=== PATIENT | male | born 1985 | race Caucasian/White ===

== ENCOUNTER 2018-06-10 03:22 | Emergency (ER) | payer BC ==
[2018-06-10] MEDS ORDERED: Sodium Chloride 0.9% 1,000 ML IV SCH (03:30)
[2018-06-10] MEDS ORDERED: Ketorolac 30 MG/ML SDV IVPUSH ONE (03:30)
[2018-06-10] MEDS ORDERED: Ondansetron 4 MG/2 ML SDV IVPUSH ONE (03:30)
[2018-06-10] MEDS ORDERED: Tamsulosin 0.4 MG Cap.ER PO ONE (03:30)
[2018-06-10] MEDS ORDERED: Sodium Chloride 0.9% 1,000 ML IV ONE (03:42)
--- NOTE | 2018-06-10 04:31 | CT ---
INDICATION: Left flank pain TECHNIQUE: CT Abdomen and pelvis without i.v. contrast. Coronal and sagittal reformats were obtained. COMPARISON: None FINDINGS: Lower chest: Unremarkable. Liver: Unremarkable. Spleen: Unremarkable. Pancreas: Unremarkable. Gallbladder: Unremarkable. Kidney: There is a 2-3 mm stone present in the left ureterovesicular junction causing mild left hydroureter and left renal pelviectasis. Moderate left perinephric edema is seen. There is a 1 mm stone present in the mid zone of the right kidney. The right ureter is unremarkable. Adrenal: Unremarkable. Bowel: Unremarkable. The appendix is normal in appearance and size. Vascular: Unremarkable. Lymph: Unremarkable. Peritoneum: Unremarkable. No pneumoperitoneum is seen. No significant ascites is noted. Pelvis: Unremarkable. Soft tissue: Unremarkable. Bone: Unremarkable for age. IMPRESSION: 1. There is a 2-3 mm stone present in the left ureterovesicular junction causing mild left hydroureter and left renal pelviectasis. Moderate left perinephric edema is seen. Dictated by Andres Jacobson MD @ 06/10/2018 4:29:51 AM Please note that all CT scans at this facility use dose modulation, iterative reconstruction, and/or weight-based dosing when appropriate to reduce radiation dose to as low as reasonably achievable. Dictated by: Andres Jacobosn MD @ 06/10/2018 04:29:56 (Electronically Signed)
--- NOTE | 2018-06-10 04:32 | EDM.PDOC ---
ED HPI GENERAL MEDICAL PROBLEM - General Chief Complaint: Flank Pain Stated Complaint: BACK AND GROIN PAIN Time Seen by Provider: 06/10/18 04:30 - History of Present Illness INITIAL COMMENTS - FREE TEXT/NARRATIVE: HISTORY AND PHYSICAL: History of present illness: Patient is a 32-year-old white male presents with concern of acute left flank pain with radiation to his groin with associated nausea he denies any trauma fever chills denies history of urolithiasis or other complaints Review of systems: As per history of present illness and below otherwise all systems reviewed and negative. Past medical history: As per history of present illness and as reviewed below otherwise noncontributory. Surgical history: As per history of present illness and as reviewed below otherwise noncontributory. Social history: No reported history of drug or alcohol abuse. Family history: As per history of present illness and as reviewed below otherwise noncontributory. Physical exam: HEENT: Atraumatic, normocephalic, pupils reactive, negative for conjunctival pallor or scleral icterus, mucous membranes moist, throat clear, neck supple, nontender, trachea midline. Lungs: Clear to auscultation, breath sounds equal bilaterally, chest nontender. Heart: S1S2, regular, negative for clicks, rubs, or JVD. Abdomen: Soft, nondistended, nontender. Negative for masses or hepatosplenomegaly. Left-sided costovertebral tenderness. Pelvis: Stable nontender. Genitourinary: Deferred. Rectal: Deferred. Extremities: Atraumatic, negative for cords or calf pain. Neurovascular unremarkable. Neuro: Awake, alert, oriented. Cranial nerves II through XII unremarkable. Cerebellum unremarkable. Motor and sensory unremarkable throughout. Exam nonfocal. Diagnostics: CBC CMP UA CT abdomen and pelvis Therapeutics: Saline 1 L bolus and Toradol 30 mg IV Zofran 4 mg IV Flomax 0.4 mg by mouth Impression: #1 acute left flank pain Definitive disposition and diagnosis as appropriate pending reevaluation and review of above. left flank Pain Score (Numeric/FACES): 8 - Related Data Allergies Allergy/AdvReac Type Severity Reaction Status Date / Time No Known Allergies Allergy Verified 06/10/18 03:24 Home Meds: Home Meds . [No Known Home Meds] 06/10/18 [History] Past Medical History - Past Surgical History GI Surgical History: Reports: Hernia, Inguinal Social & Family History - Family History Family Medical History: Noncontributory - Tobacco Use Smoking Status *Q: Never Smoker - Recreational Drug Use Recreational Drug Use: No ED ROS GENERAL - Review of Systems Review Of Systems: ROS reveals no pertinent complaints other than HPI. ED EXAM, GENERAL - Physical Exam Exam: See Below (See dictation) Course - Vital Signs Last Recorded V/S: Last Vital Signs Temp 36.1 C 06/10/18 03:22 Pulse 86 06/10/18 03:22 Resp 18 06/10/18 03:22 BP 171/109 H 06/10/18 03:22 Pulse Ox 99 06/10/18 03:22 - Orders/Labs/Meds Orders: Active Orders 24 hr Category Date Time Status Sodium Chloride 0.9% [Normal Saline] 1,000 ml Med 06/10/18 03:42 Active IV .Bolus Medication Orders Sodium Chloride (Normal Saline) 1,000 mls @ 999 mls/hr IV .Bolus ONE Stop: 06/10/18 04:42 Last Admin: 06/10/18 03:42 Dose: 999 mls/hr Labs: Laboratory Tests 06/10/18 06/10/18 06/10/18 Range/Units 03:40 03:40 03:46 WBC 17.64 H (4.0-11.0) K/uL RBC 5.61 (4.50-5.90) M/uL Hgb 17.6 H (13.0-17.0) g/dL Hct 48.2 (38.0-50.0) % MCV 85.9 (80.0-98.0) fL MCH 31.4 (27.0-32.0) pg MCHC 36.5 (31.0-37.0) g/dL RDW Std Deviation 40.8 (28.0-62.0) fl RDW Coeff of Ward 13 (11.0-15.0) % Plt Count 192 (150-400) K/uL MPV 11.10 (7.40-12.00) fL Neut % (Auto) 86.4 H (48.0-80.0) % Lymph % (Auto) 10.3 L (16.0-40.0) % Cochran % (Auto) 3.2 (0.0-15.0) % Eos % (Auto) 0.0 (0.0-7.0) % Baso % (Auto) 0.1 (0.0-1.5) % Neut # (Auto) 15.3 H (1.4-5.7) K/uL Lymph # (Auto) 1.8 (0.6-2.4) K/uL Cochran # (Auto) 0.6 (0.0-0.8) K/uL Eos # (Auto) 0.0 (0.0-0.7) K/uL Baso # (Auto) 0.0 (0.0-0.1) K/uL Nucleated RBC % 0.0 /100WBC Nucleated RBCs # 0 K/uL Sodium 135 L (136-148) mmol/L Potassium 4.4 (3.5-5.1) mmol/L Chloride 100 (98-107) mmol/L Carbon Dioxide 25.0 (21.0-32.0) mmol/L BUN 21 H (7.0-18.0) mg/dL Creatinine 1.5 H (0.8-1.3) mg/dL Est Cr Clr Drug Dosing 74.35 mL/min Estimated GFR (MDRD) 55.0 ml/min Glucose 137 H (74-106) mg/dL Calcium 10.0 (8.5-10.1) mg/dL Total Bilirubin 0.5 (0.2-1.0) mg/dL AST 31 (15-37) IU/L ALT 54 (14-63) IU/L Alkaline Phosphatase 86 (46-116) U/L Total Protein 8.3 H (6.4-8.2) g/dL Albumin 4.3 (3.4-5.0) g/dL Globulin 4.0 (2.6-4.0) g/dL Albumin/Globulin Ratio 1.1 (0.9-1.6) Urine Color YELLOW Urine Appearance SLT CLOUDY Urine pH 5.5 (5.0-8.0) Ur Specific [place] 1.025 (1.001-1.035) Urine Protein TRACE H (NEGATIVE) mg/dL Urine Glucose (UA) NEGATIVE (NEGATIVE) mg/dL Urine Ketones NEGATIVE (NEGATIVE) mg/dL Urine Occult Blood LARGE H (NEGATIVE) Urine Nitrite NEGATIVE (NEGATIVE) Urine Bilirubin NEGATIVE (NEGATIVE) Urine Urobilinogen 0.2 (<2.0) EU/dL Ur Leukocyte Esterase NEGATIVE (NEGATIVE) Urine RBC 4-7 (0-2/HPF) Urine WBC 0-2 (0-5/HPF) Ur Epithelial Cells RARE (NONE-FEW) Urine Bacteria FEW (NEGATIVE) Meds: Medications Generic Name Dose Route Start Last Admin Trade Name Freq PRN Reason Stop Dose Admin Sodium Chloride 1,000 mls @ 999 mls/hr 06/10/18 03:42 06/10/18 03:42 Normal Saline IV 06/10/18 04:42 999 mls/hr .Bolus ONE Administration Discontinued Medications Generic Name Dose Route Start Last Admin Trade Name Freq PRN Reason Stop Dose Admin Sodium Chloride 1,000 mls @ 999 mls/hr 06/10/18 03:30 Normal Saline IV ASDIRECTED MADAY Ketorolac Tromethamine 30 mg 06/10/18 03:30 06/10/18 03:40 Toradol IVPUSH 06/10/18 03:31 30 mg ONETIME ONE Administration Ondansetron HCl 4 mg 06/10/18 03:30 06/10/18 03:38 Zofran IVPUSH 06/10/18 03:31 4 mg ONETIME ONE Administration Tamsulosin HCl 0.4 mg 06/10/18 03:30 06/10/18 03:42 Flomax PO 06/10/18 03:31 0.4 mg ONETIME ONE Administration Departure - Departure Time of Disposition: 04:40 Disposition: Home, Self-Care 01 Condition: Good Clinical Impression: Ureterolithiasis - Discharge Information Referrals: PCP,None [Primary Care Provider] - Forms: ED Department Discharge Additional Instructions: The following information is given to patients seen in the emergency department who are being discharged to home. This information is to outline your options for follow-up care. We provide all patients seen in our emergency department with a follow-up referral. The need for follow-up, as well as the timing and circumstances, are variable depending upon the specifics of your emergency department visit. If you don't have a primary care physician on staff, we will provide you with a referral. We always advise you to contact your personal physician following an emergency department visit to inform them of the circumstance of the visit and for follow-up with them and/or the need for any referrals to a consulting specialist. The emergency department will also refer you to a specialist when appropriate. This referral assures that you have the opportunity for followup care with a specialist. All of these measure are taken in an effort to provide you with optimal care, which includes your followup. Under all circumstances we always encourage you to contact your private physician who remains a resource for coordinating your care. When calling for followup care, please make the office aware that this follow-up is from your recent emergency room visit. If for any reason you are refused follow-up, please contact the [facility] emergency department at and asked to speak to the emergency department charge nurse. [facility] Specialty Care - Urology [address] [place] [id number] Push fluids hydrocodone Flomax Zofran as prescribed call to schedule appointment with urology above return as needed as discussed - My Orders Last 24 Hours: My Active Orders 06/10/18 03:42 Sodium Chloride 0.9% [Normal Saline] 1,000 ml IV .Bolus - Assessment/Plan Last 24 Hours: My Active Orders 06/10/18 03:42 Sodium Chloride 0.9% [Normal Saline] 1,000 ml IV .Bolus
== END 2018-06-10 04:58 | disposition home or self-care (01) ==
LOC: MW.ED 03:22
DX: N20.1 Calculus of ureter (principal)
CPT/HCPCS: 74176; 80053; 81001; 85025; 96361; 96374; 96375; 99284; A9270; J1885; J2405; J7040; 99283